=== PATIENT | male | born 2000 | race Caucasian/White ===

== ENCOUNTER 2023-06-08 22:10 | Emergency (ER) | payer OTHER, SELFPAY | END 2023-06-08 22:27 | disposition E | LOC: EDBD 22:10 → NAV ERS 22:10 | DX: S09.90XA Unspecified injury of head, initial encounter (principal); I46.9 Cardiac arrest, cause unspecified; V89.2XXA Person injured in unspecified motor-vehicle accident, traffic, initial encounter | CPT/HCPCS: 51702; 71045; 94760; 96374; G0390 ==